=== PATIENT | male | born 1985 | race Hispanic/Latino ===

== ENCOUNTER 2019-06-03 10:55 | Emergency (ER) | payer BC, OTHER ==
[2019-06-03 11:29] LABS: BASOPHILS % (AUTO) 1.2 % (0.0-5.0); EOSINOPHILS % (AUTO) 2.9 % (0.0-8.0); HEMATOCRIT 45.9 % (42-54); LYMPHOCYTES % (AUTO) 35.6 % (21.0-51.0); MEAN CORPUSCULAR HEMOGLOBIN 30.7 pg (27.0-33.0); MEAN CORPUSCULAR HGB CONC 34.8 g/dL (32.0-36.0); MEAN CORPUSCULAR VOLUME 88.1 fL (79-99); MONOCYTES % (AUTO) 7.9 % (3.0-13.0); NEUTROPHILS % (AUTO) 52.4 % (40.0-77.0); PLATELET COUNT (AUTO) 198 K/uL (130-400); RED BLOOD CELL COUNT(AUTO) 5.21 MIL/uL (4.50-6.20); RED CELL DISTRIBUTION WIDTH 13.3 % (11.0-15.5)
[2019-06-03 11:36] LABS: CREATININE 0.9 mg/dL (0.5-1.5); CRP QUANTITATIVE 2.8 mg/L (0.00-9.0); POTASSIUM 3.8 mmol/L (3.5-5.1)
[2019-06-03] MEDS ORDERED: ACETAMINOPHEN-CODEINE 300/30MG TAB ONE (12:09)
[2019-06-03] MEDS ORDERED: METHYLPREDNISOLONE SOD SUCC 125MG/2ML VIAL ONE (12:09)
[2019-06-03 12:28] LABS: ERYTHROCYTE SEDIMENTATION RATE 1 MM/HR (0-15)
== END 2019-06-03 12:33 | disposition home or self-care (01) ==
LOC: EDH 10:55
DX: M10.072 Idiopathic gout, left ankle and foot (principal); I48.91 Unspecified atrial fibrillation
CPT/HCPCS: 36415; 73610; 80048; 84550; 85025; 85651; 86140; 96372; 99285; J2930